=== PATIENT | male | born 1955 | race Caucasian/White ===

== ENCOUNTER 2019-03-22 13:48 | Day surgery (SDC) | payer MEDICAID ==
[~2019-03-22] VITALS: Ht 157.5 cm; Wt 77.7 kg
[~2019-03-22 13:48] MED LIST: SODIUM CHLORIDE 0.9% 1,000 ML IV ONE
[2019-03-22] MEDS ORDERED: LIDOCAINE/PF 2% 5 ML VIAL IM ONE (13:49)
[2019-03-22] MEDS ORDERED: PROPOFOL 1% 20 ML VIAL IVP ONE (13:49)
[2019-03-22] MEDS ORDERED: ACET-2247 PO (14:21)
[2019-03-22] MEDS ORDERED: MEPERIDINE-PF 25 MG/ML VIAL IVP PRN (16:00)
[2019-03-22] MEDS ORDERED: HYDROmorphone 2 MG/ML SYRINGE IVP PRN (16:00)
[2019-03-22] MEDS ORDERED: FentaNYL CITRATE-PF 100 MCG/2 ML VIAL IVP PRN (16:00)
[2019-03-22] MEDS ORDERED: OXYGEN THERAPY IH SCH (20:00)
== END 2019-03-22 16:30 | disposition home or self-care (01) ==
LOC: SURGERY 13:48
PROVIDERS: ATTEND Internal Medicine Gastroenterology
DX: D12.4 Benign neoplasm of descending colon (principal); D12.3 Benign neoplasm of transverse colon; K57.30 Diverticulosis of large intestine without perforation or abscess without bleeding; K64.8 Other hemorrhoids; K21.9 Gastro-esophageal reflux disease without esophagitis; Z79.899 Other long term (current) drug therapy; Z98.890 Other specified postprocedural states
CPT/HCPCS: 45385; 88305; C1769; J2704; J3490; J7030